=== PATIENT | female | born 1955 | race Caucasian/White ===

== ENCOUNTER → 2018-12-30 | Outpatient (CLI) | payer OTHER | END | disposition home or self-care (01) | LOC: CFH 12:40 | PROVIDERS: ATTEND Podiatrist Foot & Ankle Surgery | DX: M19.071 Primary osteoarthritis, right ankle and foot (principal); M21.6X1 Other acquired deformities of right foot; Z98.1 Arthrodesis status ==

== ENCOUNTER 2019-01-31 12:49 | Outpatient (CLI) | payer MEDICARE, BC | END 2019-01-31 23:59 | disposition home or self-care (01) | LOC: CFH 12:49 | PROVIDERS: ATTEND Family Medicine | DX: M79.641 Pain in right hand (principal) ==

== ENCOUNTER 2020-02-02 13:01 | Outpatient (CLI) | payer MEDICARE, BC | END 2020-02-02 23:59 | disposition home or self-care (01) | LOC: CFH 13:01 | PROVIDERS: ATTEND Podiatrist Foot & Ankle Surgery | DX: S92.221A Displaced fracture of lateral cuneiform of right foot, initial encounter for closed fracture (principal); M19.071 Primary osteoarthritis, right ankle and foot; M85.88 Other specified disorders of bone density and structure, other site; M25.774 Osteophyte, right foot; X58.XXXA Exposure to other specified factors, initial encounter; Y93.89 Activity, other specified; Y92.89 Other specified places as the place of occurrence of the external cause; Y99.8 Other external cause status ==